=== PATIENT | male | born 1975 | race Caucasian/White ===

== ENCOUNTER 2021-06-10 08:31 | Outpatient (CLI) | payer OTHER, SELFPAY ==
--- NOTE | ~2021-06-10 | CT_ITS ---
EXAMINATION: CT abdomen pelvis w con EXAM DATE: 06/10/2021 08:58 INDICATION: K43.9 - Ventral hernia without obstruction or gangrene. TECHNIQUE: Spiral CT of the abdomen and pelvis was performed following intravenous injection of 100 m L Omnipaque 350. Axial, coronal and sagittal images of the abdomen and pelvis were reviewed. The do se-length product (DLP) for this examination was 1216.68 mGy-cm. The exposure was tailored according to patient size (auto mA exposure control), and iterative reconstruction (ASIR) was used as addition al dose reduction technique. There is no prior study for comparison. FINDINGS: There is small supraumbilical fat-containing hernia just right of midline which also has in flammation which could indicate this is symptomatic, please clinically correlate. There is also small umbilical fat-containing hernia without inflammation. Small bilateral inguinal fat-containing hernia s. The liver, spleen, adrenal glands and pancreas are unremarkable. Gallbladder is unremarkable. N o biliary obstruction. Portal and splenic veins are patent. Kidneys enhance symmetrically. There i s no hydronephrosis. The prostate is unremarkable. The bladder is unremarkable. There is no retro peritoneal or pelvic lymphadenopathy. The appendix is not positively visualized. There is no pericecal inflammatory change to suggest appe ndicitis. There are multiple short segment small bowel intussusception identified, no adjacent ablat ion. These are consistent with transient incidental findings, not clinically significant at this time . There is expected amount of colonic stool. No free intraperitoneal gas. The heart is normal in size. There are no pericardial or pleural effusions. The lung bases are unremarkable. There are no osteoblastic or osteolytic lesions identified. IMPRESSION: 1. Small supraumbilical hernia with inflammation. 2. Small umbilical and inguinal hernias. 3. Multiple small bowel short segment intussusceptions, transient incidental findings not likely cli nically significant. Reviewed, dictated and finalized at location B. IMPRESSION: 1. Small supraumbilical hernia with inflammation. 2. Small umbilical and inguinal hernias. 3. Multiple small bowel short segment intussusceptions, transient incidental f indings not likely clinically significant.
== END 2021-06-10 08:32 | disposition home or self-care (01) ==
LOC: ANHIMG 08:36
PROVIDERS: PCP Family Medicine; Visit Provider Surgery
DX: K43.9 Ventral hernia without obstruction or gangrene (principal); K40.90 Unilateral inguinal hernia, without obstruction or gangrene, not specified as recurrent; K42.9 Umbilical hernia without obstruction or gangrene
CPT/HCPCS: 74177; Q9967

== ENCOUNTER 2021-12-01 08:59 | Emergency (ER) | payer OTHER, SELFPAY ==
--- NOTE | 2021-12-01 09:01 | ED.BACK ---
HPI - Back Pain/Injury General Chief Complaint: Back Pain/Injury Stated Complaint: BACK PAIN Time Seen by Provider: 12/01/21 09:00 Source: patient Mode of arrival: ambulatory Limitations: no limitations History of Present Illness HPI Narrative: Mr. Russell is a 46-year-old male patient presenting to the clinic today with complaints of left-sided back pain x2 days. He reports no known injury but woke up with some back pain 2 days ago. He reports over the weekend he was doing a lot of yard work and thinks he may have overdone it. States the pain is sharp and is a 10 out of 10 when he is doing flexion of the back. Reports if he sitting still his the pain is a dull ache and is about a 3 or 4. He denies any saddle anesthesia or loss of bowel or bladder. He denies any radiation of pain in his lower extremities. He denies falling and appears to have a steady gait. Related Data Home Medications Medication Instructions Recorded Confirmed cetirizine 10 mg capsule (Zyrtec) 10 mg PO DAILY 05/25/21 12/01/21 fluoxetine 20 mg capsule (Prozac) 60 mg PO DAILY 05/25/21 12/01/21 Allergies Allergy/AdvReac Type Severity Reaction Status Date / Time ibuprofen Allergy Intermediate Swelling Verified 12/01/21 09:13 Review of Systems Review of Systems: Pertinent positives per HPI. Patient denies any fever, chills, rash, headache, visual changes, dizziness, cough, runny nose, sore throat, shortness of breath, chest pain, palpitations, nausea, vomiting, diarrhea, constipation, abdominal pain, or any urinary issues. [facility] Past Medical History Medical History Depression Environmental allergies Hx of hyperlipidemia Surgical History Surgical History History of surgery on left wrist 10/2016 - ORIF wrist fracture Family History Family History Father Diabetes mellitus Social History Social History Smoking status: Never smoker Alcohol intake: current Alcohol use details: 2x month Substance use: never Substance use type: does not use Additional occupation/education comments: [employer] Gender identity (if verbalized by the patient): Male Sexual Orientation (if Verbalized by the Patient): Straight or Heterosexual Spiritual care concerns: No Agree to blood products: Yes Comments At the time of my signature, I reviewed and agree with the nursing past medical, surgical, social, and family history. There is no relevant family history pertinent to the patient complaint. Exam Narrative: General: Well-developed, well nourished, in no apparent distress Head: Normocephalic, atraumatic. Cardio: Regular rate and rhythm, s1 and s2 normal, no murmur appreciated. Resp: Clear to auscultation bilaterally, no rhonchi, rales, wheezing or rubs. Musculoskeletal: No deformity, no swelling or bruising visualized, non-tender to palpation over the cervical, thoracic, or lumbar spine, tenderness to palpation over the left flank/musculature, cautious range of motion due to pain, patellar reflex 3 out of 4 bilaterally, bilateral lower muscle strength strong and equal, bilateral negative straight leg testing, negative for foot drop, peripheral pulse strong, no edema, no cyanosis, normal gait and station Course Course Emergency Course: Portions of this record may have been created with voice recognition software. Level of Care: Express Care Visit Vital Signs Vital signs: Vital signs reviewed MDM - Back Pain/Injury MDM Narrative Medical decision making narrative: At the time of visit patient is resting comfortably on exam table. Differential Diagnosis Differential diagnosis: Likely lumbar radiculopathy, sciatica and strain of lumbar region Discharge Plan Discharge Clinical Impr
[2021-12-01 09:07] VITALS: BP 155/99; PULSE 96; RESP 16; TEMP 36.4; O2SAT 97
== END 2021-12-01 09:20 | disposition home or self-care (01) ==
PROVIDERS: Emergency Provider Nurse Practitioner Family; PCP Emergency Medicine
DX: S39.012A Strain of muscle, fascia and tendon of lower back, initial encounter (principal); X58.XXXA Exposure to other specified factors, initial encounter; Y93.H9 Activity, other involving exterior property and land maintenance, building and construction; F32.A Depression, unspecified; E78.5 Hyperlipidemia, unspecified
CPT/HCPCS: 99213; G0463